=== PATIENT | female | born 1985 | race Caucasian/White ===

== ENCOUNTER 2016-12-16 15:35 | Emergency (ER) | payer BC, OTHER ==
[2016-12-16 15:53] VITALS: BP 110/85
--- NOTE | 2016-12-16 16:29 | EDM.PDOC ---
ED HISTORY OF PRESENT ILLNESS - General Chief Complaint: Cardiovascular Problem Stated Complaint: IRREGULAR HEART BEAT Time Seen by Provider: 12/16/16 16:04 Source of Information: Reports: Patient, RN notes reviewed History Limitations: Reports: No limitations - History of Present Illness INITIAL COMMENTS - FREE TEXT/NARRATIVE: The patient states that she developed the sensation of an occasional skipped beat, greater than one per hour, around 13:00 yesterday. She was able to sleep overnight, but again today and the same sensation beginning around noon. The palpitations are making the patient feel anxious, dizzy, and have a headache. She states that she has had similar sensations on and off for the past approximately 3 years. She previously saw Dr. Gonzalez about it. An ECG in his office was negative, and a subsequent Holter monitor was also negative. Here in the ED, our surveillance monitor has captured 2 separate PVCs. - Related Data Allergies/ADRs: Allergies Allergy/AdvReac Type Severity Reaction Status Date / Time cat dander Allergy Swollen Verified 12/16/16 15:53 Eyes bandaids Allergy Rash Uncoded 12/16/16 15:53 Home Meds: Home Meds . [No Known Home Meds] 12/16/16 [History] Past Medical History [employer] History: Reports: - Past Surgical History GI Surgical History: Reports: Appendectomy Social & Family History - Family History Family Medical History: Noncontributory - Tobacco Use Smoking Status *Q: Never Smoker Second Hand Smoke Exposure: No - Caffeine Use Caffeine Use: Reports: None - Alcohol Use Alcohol Use History: Yes Alcohol Use Frequency: Socially - Recreational Drug Use Recreational Drug Use: No - Living Situation & Occupation Living situation: Reports: , with spouse, with family (2 kids) Occupation: employed (Therapist at [employer]) ED ROS GENERAL - Review of Systems Review Of Systems: See Below Constitutional: Reports: no symptoms HEENT: Reports: No symptoms Respiratory: Reports: No Symptoms Cardiovascular: Reports: Palpitations Endocrine: Reports: no symptoms GI/Abdominal: Reports: No symptoms : Reports: no symptoms Musculoskeletal: Reports: no symptoms Skin: Reports: no symptoms Neurological: Reports: No Symptoms Psychiatric: Reports: Anxiety Hematologic/Lymphatic: Reports: no symptoms Immunologic: Reports: no symptoms ED EXAM, GENERAL - Physical Exam Exam: See Below Exam Limited By: No limitations General Appearance: alert, WD/WN, no apparent distress, anxious Eye Exam: bilateral eye: EOMI, normal inspection Ears: normal external exam, hearing grossly normal Ear Exam: bilateral ear: auricle normal Nose: normal inspection, no blood Throat/Mouth: Normal inspection, Normal lips, Normal voice, No airway compromise Head: atraumatic, normocephalic Neck: normal inspection, full range of motion Respiratory/Chest: no respiratory distress, lungs clear, normal breath sounds, no accessory muscle use Cardiovascular: normal peripheral pulses, regular rate, rhythm, no gallop, no JVD, no murmur, no rub Peripheral Pulses: 4+: radial (L), radial (R) GI/Abdominal: normal bowel sounds, soft, non tender, no organomegaly, no distention, no abnormal bruit, no mass (Female) Exam: Deferred Rectal (Female) Exam: Deferred Back Exam: normal inspection, full range of motion, NT Extremities: normal inspection, normal range of motion, no pedal edema, normal capillary refill Neurological: alert, oriented, normal cognition, no motor/sensory deficits Psychiatric: normal affect Skin Exam: Warm, Dry, Intact, Normal color, No rash Lymphatic: no adenopathy Course - Vital Signs Last Recorded V/S: Last Vital Signs Temp 36.6 C 12/16/16 15:40 Pulse 85 12/16/16 15:40 Resp 18 12/16/16 15:40 BP 110/85 12/16/16 15:40 Pulse Ox 99 12/16/16 15:40 - Orders/Labs/Meds Orders: Active Orders 24 hr Category Date Time Status EKG Documentation Completion [RC] STAT Care 12/16/16 15:59 Inactive Holter Monitor 48 Hours [RC] .PRN Care 12/16/16 16:25 Active - Re-Assessments/Exams Free Text/Narrative Re-Assessment/Exam: 12/16/16 16:24 The surveillance monitor captured two PVCs. Of course, it is also possible that the patient is suffering from some other abnormal conduction, therefore we are going to place a 48 hour Holter monitor. We wanted to place an event monitor, however, the software is apparently being updated and the event monitors are not currently available. The patient will then followup with her PCP, Dr. Gonzalez. Departure - Departure Time of Disposition: 16:25 Disposition: Home, Self-Care 01 Condition: good Clinical Impression: PVCs (premature ventricular contractions) Instructions: Premature Ventricular Contraction Referrals: Raul Gonzalez MD [Primary Care Provider] - Forms: ED Department Discharge Additional Instructions: You were seen in the emergency room for the sensation of skipped heartbeats. 2 PVCs were found on your surveillance monitor in the ER. You should know that PVCs are common, and not harmful. They require no treatment. In order to determine if there are other electrical abnormalities going on, a 48 hour Holter monitor has been attached to you. Turn this in to the admitting desk in [address] Gonzalez to get the Holter monitor results. If that does not give answers you're looking for, he may want to set you up with an event monitor. If any other problems, please do not hesitate to return to the ER. - My Orders Last 24 Hours: My Active Orders 12/16/16 16:25 Holter Monitor 48 Hours [RC] .PRN - Assessment/Plan Last 24 Hours: My Active Orders 12/16/16 16:25 Holter Monitor 48 Hours [RC] .PRN
== END 2016-12-16 16:44 | disposition home or self-care (01) ==
LOC: JD.ED 15:35
DX: I49.3 Ventricular premature depolarization (principal); Z90.49 Acquired absence of other specified parts of digestive tract
CPT/HCPCS: 93225; 93226; 99283; 99285-25

== ENCOUNTER 2023-11-24 08:31 | Emergency (ER) | payer OTHER ==
[2023-11-24 09:43] LABS: BASOPHILS PERCENT AUTO 0.5 % (0.0-1.0); EOSINOPHILS ABSOLUTE AUTO 0.1 K/mm3 (0.0-0.4); EOSINOPHILS PERCENT AUTO 1.7 % (0.0-6.0); HEMATOCRIT 40.7 % (37.0-47.0); HEMOGLOBIN 13.1 gm/dl (12.0-16.0); IMMATURE GRAN ABSOLUTE AUTO 0.03 K/mm3 (0.00-0.05); IMMATURE GRAN PERCENT AUTO 0.4 % (0.0-0.4); LYMPHOCYTES ABSOLUTE AUTO 1.6 K/mm3 (1.0-4.8); LYMPHOCYTES PERCENT AUTO 20.6 % (24.0-44.0); MEAN CORPUSCULAR HEMOGLOBIN 27.9 pg (28.0-32.0); MEAN CORPUSCULAR HGB CONC 32.2 g/dl (32.0-36.0); MEAN CORPUSCULAR VOLUME 86.8 fl (83.0-99.0); MEAN PLATELET VOLUME 10.5 fl (9.4-12.3); MONOCYTES ABSOLUTE AUTO 0.7 K/mm3 (0.0-0.8); MONOCYTES PERCENT AUTO 8.4 % (0.0-8.0); NEUTROPHILS ABSOLUTE AUTO 5.3 K/mm3 (1.8-7.7); NEUTROPHILS PERCENT AUTO 68.4 % (41.0-71.0); PLATELET COUNT,PLT 263 K/mm3 (150-400); RED BLOOD CELL COUNT 4.69 M/mm3 (4.10-5.30); WHITE BLOOD CELL COUNT,WBC 7.71 K/mm3 (3.9-11.3)
[2023-11-24 10:13] LABS: A/G RATIO 1.1 (1-2); ALBUMIN 3.9 g/dl (3.4-5.0); ANION GAP 10.2 (5-15); BILIRUBIN TOTAL 0.5 mg/dL (0.2-1.0); BUN/CREATININE RATIO 13.8 (14-18); CALCIUM 8.8 mg/dL (8.5-10.1); CREATININE 0.8 mg/dL (0.55-1.02); EST CRCL DRUG DOSING (CG) 83.14 mL/min; MAGNESIUM 1.8 mg/dL (1.8-2.4); POTASSIUM,K 4.2 mEq/L (3.5-5.1); PROTEIN TOTAL,TP 7.4 g/dl (6.4-8.2); TSH 1.08 uIU/mL (0.358-3.74)
[2023-11-24 10:44] VITALS: BP 129/78; PULSE 61
== END 2023-11-24 10:40 | disposition home or self-care (01) ==
LOC: JD.ED 08:31
DX: R00.2 Palpitations (principal); Z90.49 Acquired absence of other specified parts of digestive tract; Z91.048 Other nonmedicinal substance allergy status
CPT/HCPCS: 36415; 80053; 83735; 84443; 84484; 85025; 93005; 93010; 99282; 99285